=== PATIENT | female | born 1945 | race Caucasian/White ===

== ENCOUNTER 2020-07-13 17:09 | Emergency (ER) | payer MEDICARE ==
[2020-07-13] MEDS ORDERED: Sodium Chloride 0.9% 1000 ML 1,000 ML IV STA (17:14)
[2020-07-13] MEDS ORDERED: Nitrostat 0.4 MG (ED) SL ONE ×2 (17:14→17:23)
[2020-07-13] MEDS ORDERED: BABY ASPIRIN 81 MG CHEW PO ONE (17:14)
[2020-07-13] MEDS ORDERED: BABY ASPIRIN 81 MG CHEW ONE (17:23)
[2020-07-13] MEDS ORDERED: Sodium Chloride 0.9% 1000 ML 1,000 ML ONE (17:23)
[2020-07-13 17:32] LABS: Absolute Neutrophil Ct (ANC) 3.97 (1.4-6.9); BASOPHIL % 0.4 % (0.0-0.4); Basophil (Absolute #) 0.03 (0-0.4); Eosinophil % 1.2 % (0.00-5.0); Eosinophil (Absolute #) 0.09 (0-0.5); Hematocrit 42.6 % (35-47); Lymphocyte (Absolute #) 2.64 (1.0-4.6); Lymphocytes % 35.4 % (24.0-44.0); Mean Cell Volume 91.4 fl (78-100); Mean Corpuscular Hgb Concent. 32.9 g/dl (32-36); Mean Platelet Volume 9.7 fl (7.5-11.0); Monocyte (Absolute #) 0.73 (0.0-1.3); Monocytes % 9.8 % (0.0-12.0); Neutrophil % 53.2 % (36.0-66.0); Platelet Count 345 K/mm3 (150-450); Red Blood Count 4.66 M/mm3 (4.1-5.4); Red Cell Distribution Width 14.4 % (11.5-14.0); White Blood Count 7.5 K/mm3 (4.0-10.5)
--- NOTE | 2020-07-13 17:44 | ERPHSYRPT ---
<MARY ANNE,RANJIT - Last Filed: 07/13/20 19:07> - History of Present Illness Time Seen by Provider: 07/13/20 17:42 Historian: patient Exam Limitations: no limitations Patient Subjective Stated Complaint: Chest pain Triage Nursing Assessment: Patient ambulated back to ED and transferred self to bed. Patient A+O X3. Patient's skin pink, warm and dry. Patient complains of chest pain intermittent sharp, burning pain 3/10. Patient states the pain has been for one week. Patient's lungs clear a/p emma. No edema noted. Heart tones audible. Physician History: Patient complains of chest pain intermittent sharp, burning pain 3/10. Patient states the pain has been for one week. Patient denies any chest pain radiation, diaphoresis shortness of breath fever chills abdominal pain or swelling on her l eg. Patient states that she had a better day yesterday but today morning she had a chest pain for few minutes. While she is in the emergency room she denies any chest pain now. Timing/Duration: day(s) (5-7 days) Activities at Onset: none Quality: burning, sharpness Location: substernal Chest Pain Radiation: no radiation Severity of Pain-Max: mild Severity of Pain-Current: none Modifying Factors: Improves With: nothing Associated Symptoms: denies symptoms Prior Chest Pain/Cardiac Workup: no prior chest pain Nitro Today/Relief: no nitro taken today Aspirin Treatment Today: no aspirin today Allergies/Adverse Reactions: No Known Drug Allergies Allergy (Verified 07/13/20 17:12) Home Medications: Aspirin [Aspirin EC] 81 mg PO HS 03/14/15 [History] Gabapentin [Neurontin] 300 mg PO BID 03/14/15 [History] Hx Tetanus, Diphtheria Vaccination/Date Given: No Hx Influenza Vaccination/Date Given: No Hx Pneumococcal Vaccination/Date Given: No Immunizations Up to Date: Yes Travel Risk - International Travel Have you traveled outside of the country in past 3 weeks: No - Coronavirus Screening Are you exhibiting any of the following symptoms?: No Close contact with a COVID-19 positive Pt in past 14-21 Days: No - Review of Systems Constitutional: No Fever, No Chills Eyes: No Symptoms Ears, Nose, & Throat: No Symptoms Respiratory: No Cough, No Dyspnea Cardiac: Chest Pain, No Edema, No Syncope Abdominal/Gastrointestinal: No Abdominal Pain, No Nausea, No Vomiting, No Diarrhea Genitourinary Symptoms: No Dysuria Musculoskeletal: No Back Pain, No Neck Pain Skin: No Rash Neurological: No Dizziness, No Focal Weakness, No Sensory Changes Psychological: No Symptoms Endocrine: No Symptoms All Other Systems: Reviewed and Negative - Past Medical History Neurological History: Peripheral Neuropathy ENT History: No Pertinent History Cardiac History: No Pertinent History Respiratory History: No Pertinent History Endocrine Medical History: No Pertinent History Musculoskeletal History: Arthritis GI Medical History: Gallbladder Disease, Hemorrhoids, Polyps History: No Pertinent History Psycho-Social History: No Pertinent History Female Reproductive Disorders: Other 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 - Past Surgical History Past Surgical History: Yes Neuro Surgical History: No Pertinent History Cardiac: No Pertinent History Respiratory: No Pertinent History Gastrointestinal: Cholecystectomy Genitourinary: No Pertinent History Musculoskeletal: No Pertinent History Female Surgical History: Hysterectomy - Social History Smoking Status: Never smoker Exposure to second hand smoke: No Drug Use: none Patient Lives Alone: No - Female History Hx Now: No - Physical Exam General Appearance: no apparent distress, alert Eye Exam: PERRL/EOMI, eyes nml inspection Ears, Nose, Throat Exam: normal ENT inspection, moist mucous membranes Neck Exam: normal inspection, non-tender, supple, full range of motion Respiratory Exam: normal breath sounds, lungs clear, No respiratory distress Cardiovascular Exam: regular rate/rhythm, normal heart sounds Gastrointestinal/Abdomen Exam: soft, No tenderness, No mass Back Exam: normal inspection, No CVA tenderness, No vertebral tenderness Extremity Exam: normal inspection, normal range of motion Neurologic Exam: alert, oriented x 3, cooperative, normal mood/affect, sensation nml, No motor deficits Skin Exam: normal color, warm, dry SpO2: 96 - Course Nursing assessment & vital signs reviewed: Yes EKG Interpreted by Me: Sinus Rhythm, Non-specific ST Changes - Radiology Exams Chest X-ray Interpretation: Reviewed by me - Departure Clinical Impression: Pulmonary embolus Condition: Stable Referrals: EDYTA FERRERA [Primary Care Provider] - Additional Instructions: Take medication as prescribed. Call Dr. Ferrera's office tomorrow to make arrangements for follow-up appointment. Prescriptions: Apixaban [Eliquis] 5 mg PO BID #30 tablet <VANE SCHILLING - Last Filed: 07/13/20 20:42> - Nursing Vital Signs Nursing Vital Signs: Initial Vital Signs Temperature 98.6 F 07/13/20 17:16 Pulse Rate 101 H 07/13/20 17:16 Respiratory Rate 18 07/13/20 17:16 Blood Pressure 177/92 07/13/20 17:16 O2 Sat by Pulse Oximetry 96 07/13/20 17:16 Pain Scale Pain Intensity 1 Ordered Tests: Active Orders 24 hr Category Date Time Status Metalizing Machine Operator STAT Care 07/13/20 17:14 Active EKG-ER Only STAT Care 07/13/20 17:14 Active IV Insertion STAT Care 07/13/20 17:14 Active Oxygen-ED Only Nasal Cannula 2 lpm Care 07/13/20 17:14 Active CHEST 1 VIEW (PORTABLE) Stat Exams 07/13/20 17:14 Taken CHEST WITH CONTRAST [CT] Stat Exams 07/13/20 18:26 Taken CBC W DIFF Stat Lab 07/13/20 17:20 Completed CMP Stat Lab 07/13/20 17:20 Completed D-DIMER QUANTITATIVE Stat Lab 07/13/20 17:20 Completed NT PRO BNP Stat Lab 07/13/20 17:20 Completed TROPONIN Q3H Lab 07/13/20 17:20 Completed TROPONIN Q3H Lab 07/13/20 20:15 Ordered TROPONIN Q3H Lab 07/13/20 23:15 Ordered TROPONIN Q3H Lab 07/14/20 02:15 Ordered TROPONIN Q3H Lab 07/14/20 05:15 Ordered Medication Summary Discontinued Medications Generic Name Dose Route Start Last Admin Trade Name Freq PRN Reason Stop Dose Admin Aspirin 324 mg 07/13/20 17:14 07/13/20 17:25 Baby Aspirin 81 Mg Chew PO 07/13/20 17:15 324 mg STAT ONE Administration Aspirin Confirm 07/13/20 17:23 Baby Aspirin 81 Mg Chew Administered 07/13/20 17:24 Dose 324 mg .ROUTE .STK-MED ONE Famotidine 20 mg 07/13/20 18:15 07/13/20 18:16 Pepcid 20 Mg Vial IV 07/13/20 18:16 20 mg STAT ONE Administration Famotidine Confirm 07/13/20 18:15 Pepcid 20 Mg Vial Administered 07/13/20 18:16 Dose 20 mg IV .STK-MED ONE Sodium Chloride 1,000 mls @ 999 mls/hr 07/13/20 17:14 07/13/20 18:28 Sodium Chloride 0.9% 1000 Ml IV 07/13/20 18:14 Infused .Q1H1M STA Infusion Sodium Chloride Confirm 07/13/20 17:23 Sodium Chloride 0.9% 1000 Ml Administered 07/13/20 17:24 Dose 1,000 mls @ ud .ROUTE .STK-MED ONE Nitroglycerin 0.4 mg 07/13/20 17:14 07/13/20 17:25 Nitrostat 0.4 Mg (Ed) SL 07/13/20 17:15 0.4 mg STAT ONE Administration Nitroglycerin Confirm 07/13/20 17:23 Nitrostat 0.4 Mg (Ed) Administered 07/13/20 17:24 Dose 0.4 mg SL .STK-MED ONE Lab/Rad Data: Laboratory Result Diagrams 07/13/20 17:20 07/13/20 17:20 Laboratory Results 07/13/20 07/13/20 07/13/20 Range/Units 17:20 17:20 17:20 WBC (4.0-10.5) K/mm3 RBC (4.1-5.4) M/mm3 Hgb (12.0-16.0) gm/dl Hct (35-47) % MCV (78-100) fl MCH (26-32) pg MCHC (32-36) g/dl RDW (11.5-14.0) % Plt Count (150-450) K/mm3 MPV (7.5-11.0) fl Gran % (36.0-66.0) % Eos # (Auto) (0-0.5) Absolute Lymphs (auto) (1.0-4.6) Absolute Monos (auto) (0.0-1.3) Lymphocytes % (24.0-44.0) % Monocytes % (0.0-12.0) % Eosinophils % (0.00-5.0) % Basophils % (0.0-0.4) % Absolute Granulocytes (1.4-6.9) Basophils # (0-0.4) D-Dimer 1413 H* (215-500) ng/mL Sodium 139 (137-145) mmol/L Potassium 3.5 (3.5-5.1) mmol/L Chloride 103 (98-107) mmol/L Carbon Dioxide 27 (22-30) mmol/L Anion Gap 12.6 (5-15) MEQ/L BUN 13 (7-17) mg/dL Creatinine 0.82 (0.52-1.04) mg/dL Estimated GFR > 60.0 ML/MIN Glucose 132 H (74-106) mg/dL Calcium 9.4 (8.4-10.2) mg/dL Total Bilirubin 0.70 (0.2-1.3) mg/dL AST 27 (14-36) U/L ALT 18 (0-35) U/L Alkaline Phosphatase 103 (38-126) U/L Troponin I < 0.012 (0.000-0.034) ng/mL NT-Pro-B Natriuret Pep 182 (0-1800) pg/mL Serum Total Protein 8.0 (6.3-8.2) g/dL Albumin 4.3 (3.5-5.0) g/dL 07/13/20 Range/Units 17:20 WBC 7.5 (4.0-10.5) K/mm3 RBC 4.66 (4.1-5.4) M/mm3 Hgb 14.0 (12.0-16.0) gm/dl Hct 42.6 (35-47) % MCV 91.4 (78-100) fl MCH 30.0 (26-32) pg MCHC 32.9 (32-36) g/dl RDW 14.4 H (11.5-14.0) % Plt Count 345 (150-450) K/mm3 MPV 9.7 (7.5-11.0) fl Gran % 53.2 (36.0-66.0) % Eos # (Auto) 0.09 (0-0.5) Absolute Lymphs (auto) 2.64 (1.0-4.6) Absolute Monos (auto) 0.73 (0.0-1.3) Lymphocytes % 35.4 (24.0-44.0) % Monocytes % 9.8 (0.0-12.0) % Eosinophils % 1.2 (0.00-5.0) % Basophils % 0.4 (0.0-0.4) % Absolute Granulocytes 3.97 (1.4-6.9) Basophils # 0.03 (0-0.4) D-Dimer (215-500) ng/mL Sodium (137-145) mmol/L Potassium (3.5-5.1) mmol/L Chloride (98-107) mmol/L Carbon Dioxide (22-30) mmol/L Anion Gap (5-15) MEQ/L BUN (7-17) mg/dL Creatinine (0.52-1.04) mg/dL Estimated GFR ML/MIN Glucose (74-106) mg/dL Calcium (8.4-10.2) mg/dL Total Bilirubin (0.2-1.3) mg/dL AST (14-36) U/L ALT (0-35) U/L Alkaline Phosphatase (38-126) U/L Troponin I (0.000-0.034) ng/mL NT-Pro-B Natriuret Pep (0-1800) pg/mL Serum Total Protein (6.3-8.2) g/dL Albumin (3.5-5.0) g/dL - Progress Progress: improved Air Movement: good Progress Note: 07/13/20 20:39 Medical decision making: I received a phone call and then a follow-up report of the CTA of the chest on this patient. The radiologist said that he definitely sees a tiny abnormality within the peripheral branches of the superior segment of the left lower lobe. He told me that he is not completely or 100% convinced this is a pulmonary embolus but that is in the differential. The patient is hemodynamically stable and oxygenating well. I contacted Dr. Ferrera, who is the patient's primary care physician and the hospitalist on-call for hospital, I reviewed the patient's history, condition, laboratory work-up, EKG, radi ographic study results with him. He states that we should give the patient some Lovenox here in the emergency department and discharge the patient to home with Eliquis 5 mg orally twice a day and to follow-up in his his office. I am in agreement with this plan. The patient is in agreement with this plan as well. Blood Culture(s) Obtained: No Antibiotics given: No Discussed with : Kalani Counseled pt/family regarding: lab results, diagnosis, need for follow-up, rad results - Departure Departure Disposition: Home Critical Care Time: No
[2020-07-13 17:56] LABS: ALBUMIN 4.3 g/dL (3.5-5.0); ALKALINE PHOSPHATASE 103 U/L (38-126); ANION GAP 12.6 MEQ/L (5-15); BLOOD UREA NITROGEN 13 mg/dL (7-17); CHLORIDE 103 mmol/L (98-107); Calcium 9.4 mg/dL (8.4-10.2); Carbon Dioxide 27 mmol/L (22-30); Creatinine 1 0.82 mg/dL (0.52-1.04); Glucose 132 mg/dL (74-106); NT PRO BNP 182 pg/mL (0-1800); Potassium 3.5 mmol/L (3.5-5.1); SGOT/AST 27 U/L (14-36); SGPT/ALT 18 U/L (0-35); SODIUM 139 mmol/L (137-145)
[2020-07-13] MEDS ORDERED: Pepcid 20 MG VIAL IV ONE ×2 (18:15)
[2020-07-13] MEDS ORDERED: ENOXAPARIN SODIUM SQ ONE ×2 (20:42→20:43)
[2020-07-13 20:52] VITALS: BP 129/79; PULSE 80; O2SAT 96
--- NOTE | 2020-07-14 08:35 | XRAY ---
Indication: Chest pain. Elevated d-dimer. Multiple contiguous axial images obtained through the chest using 80 cc Isovue 370 contrast and PE protocol. Comparison: None There is satisfactory opacification of the pulmonary arteries to include the lobar and segmental branches. Tiny pulmonary emboli seen in the segmental/subsegmental branches of the left lower lobe. No other filling defect or pulmonary embolus. Heart is not enlarged. Aorta is normal in course and caliber. No pathologic mediastinal/hilar lymphadenopathy. Lungs inflated with minimal scattered fibrosis/scarring bilaterally. No suspicious pulmonary mass, infiltrate, or effusion. Bony thorax intact with mild degenerative changes throughout the spine. Limited upper abdomen demonstrates fatty liver. Impression: 1. Left lower lobe pulmonary emboli. No distal infarct. 2. Incidental fatty liver. Comment: Preliminary interpretation was made by [facility]. No critical discrepancy.
--- NOTE | 2020-07-14 08:37 | XRAY ---
Indication: Chest pain. Comparison: None Portable chest clear. Heart is not enlarged with mild tortuous descending aorta. Bony thorax intact with mild degenerative changes. Impression: Nonacute chest with chronic features.
== END 2020-07-13 20:58 | disposition home or self-care (01) ==
LOC: ED 17:09
DX: I26.99 Other pulmonary embolism without acute cor pulmonale (principal); R07.9 Chest pain, unspecified
CPT/HCPCS: 36000; 36415; 71045; 71260; 80053; 83880; 84484; 85025; 85379; 93005; 93041; 96360; 96372; 96374; 99285; J1650; A9270-GY

== ENCOUNTER 2020-07-15 07:52 | Observation (INO) | payer MEDICARE ==
--- NOTE | 2020-07-15 08:19 | ERPHSYRPT ---
- History of Present Illness Time Seen by Provider: 07/15/20 08:00 Historian: patient Exam Limitations: no limitations Patient Subjective Stated Complaint: Chest pain Triage Nursing Assessment: Patient ambulated back to ED and transferred self to bed. Patient A+O X3. Patient's skin pink, warm and dry. Patient complains of constant, burning pain 2/10. Patient was in ER on 07/13/20 and dx with PE. Patient was started on Eliquis. Patient states the pain is not going away.Lungs clear a/p emma. NO edema noted. Heart tones audible. Physician History: Patient is a 75-year-old female presents to our ED with complaints of a burning sensation in her chest. Patient was in our ED 2 days ago. At that time patient was diagnosed with a left lower lobe pulmonary embolism. She received a dose of Lovenox in our ED. Patient was discharged home on 5 mg Eliquis twice daily. Patient took Eliquis 5 mg twice daily yesterday. Chest pain is constant. It has not resolved since her last ED visit. No associated nausea vomiting or diaphoresis. No trauma. No fever. No shortness of breath. Patient voices no other complaints at this time. Timing/Duration: day(s) Activities at Onset: none Quality: burning Location: substernal Chest Pain Radiation: no radiation Severity of Pain-Max: moderate Severity of Pain-Current: mild Modifying Factors: Improves With: nothing Associated Symptoms: denies symptoms, No vomiting, No palpitations, No shortness of breath, No cough, No hurts to breathe, No diaphoresis, No syncope, No dizziness Nitro Today/Relief: no nitro taken today Aspirin Treatment Today: no aspirin today Allergies/Adverse Reactions: No Known Drug Allergies Allergy (Verified 07/15/20 07:55) Home Medications: Aspirin [Aspirin EC] 81 mg PO HS 03/14/15 [History] Gabapentin [Neurontin] 300 mg PO BID 03/14/15 [History] Hx Tetanus, Diphtheria Vaccination/Date Given: No Hx Influenza Vaccination/Date Given: No Hx Pneumococcal Vaccination/Date Given: No Immunizations Up to Date: Yes Travel Risk - International Travel Have you traveled outside of the country in past 3 weeks: No - Coronavirus Screening Are you exhibiting any of the following symptoms?: No Close contact with a COVID-19 positive Pt in past 14-21 Days: No - Review of Systems Constitutional: No Symptoms, No Fever, No Chills Eyes: No Symptoms Ears, Nose, & Throat: No Symptoms Respiratory: No Symptoms, No Cough, No Dyspnea Cardiac: No Symptoms, No Chest Pain, No Edema, No Syncope Abdominal/Gastrointestinal: No Symptoms, No Abdominal Pain, No Nausea, No Vomiting, No Diarrhea Genitourinary Symptoms: No Symptoms, No Dysuria Musculoskeletal: No Symptoms, No Back Pain, No Neck Pain Skin: No Symptoms, No Rash Neurological: No Symptoms, No Dizziness, No Focal Weakness, No Sensory Changes Psychological: No Symptoms Endocrine: No Symptoms Hematologic/Lymphatic: No Symptoms Immunological/Allergic: No Symptoms All Other Systems: Reviewed and Negative - Past Medical History Pertinent Past Medical History: Yes Neurological History: Peripheral Neuropathy ENT History: No Pertinent History Cardiac History: No Pertinent History Respiratory History: Pulmonary Embolism Endocrine Medical History: No Pertinent History Musculoskeletal History: Arthritis GI Medical History: Gallbladder Disease, Hemorrhoids, Polyps History: No Pertinent History Psycho-Social History: No Pertinent History Female Reproductive Disorders: Other 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, dx with recent PE - Past Surgical History Past Surgical History: Yes Neuro Surgical History: No Pertinent History Cardiac: No Pertinent History Respiratory: No Pertinent History Gastrointestinal: Cholecystectomy Genitourinary: No Pertinent History Musculoskeletal: No Pertinent History Female Surgical History: Hysterectomy - Social History Smoking Status: Never smoker Exposure to second hand smoke: No Drug Use: none Patient Lives Alone: No - Nursing Vital Signs Nursing Vital Signs: Initial Vital Signs Temperature 98.2 F 07/15/20 07:56 Pulse Rate 100 H 07/15/20 07:56 Respiratory Rate 18 07/15/20 07:56 Blood Pressure 158/85 07/15/20 07:56 O2 Sat by Pulse Oximetry 97 07/15/20 07:56 Pain Scale Pain Intensity 2 - Physical Exam General Appearance: no apparent distress, alert Eye Exam: PERRL/EOMI, eyes nml inspection Ears, Nose, Throat Exam: normal ENT inspection, moist mucous membranes Neck Exam: normal inspection, non-tender, supple, full range of motion Respiratory Exam: normal breath sounds, lungs clear, No respiratory distress Cardiovascular Exam: regular rate/rhythm, normal heart sounds Gastrointestinal/Abdomen Exam: soft, No tenderness, No mass Back Exam: normal inspection, No CVA tenderness, No vertebral tenderness Extremity Exam: normal inspection, normal range of motion Neurologic Exam: alert, oriented x 3, cooperative, normal mood/affect, sensation nml, No motor deficits Skin Exam: normal color, warm, dry SpO2 Interpretation: normal SpO2: 96 O2 Delivery: Room Air - Course Nursing assessment & vital signs reviewed: Yes EKG Interpreted by Me: RATE (87), Sinus Rhythm, Left Monroe Deviation, NORMAL INTERVALS - Radiology Exams Chest X-ray Interpretation: Teleradiologist Report (Her lung gregorio. Heart is not enlarged. Tortuous descending aorta. No new acute findings.) Ordered Tests: Active Orders 24 hr Category Date Time Status Paver STAT Care 07/15/20 07:55 Active EKG-ER Only STAT Care 07/15/20 07:54 Active IV Insertion STAT Care 07/15/20 07:54 Active Pulse Oximetry (ED) STAT Care 07/15/20 07:54 Active CHEST 1 VIEW (PORTABLE) Stat Exams 07/15/20 07:55 Completed CBC W DIFF Stat Lab 07/15/20 08:15 Completed CMP Stat Lab 07/15/20 08:15 Completed D-DIMER QUANTITATIVE Stat Lab 07/15/20 08:15 Completed TROPONIN Q3H Lab 07/15/20 08:15 Completed TROPONIN Q3H Lab 07/15/20 11:00 Ordered TROPONIN Q3H Lab 07/15/20 14:00 Ordered TROPONIN Q3H Lab 07/15/20 17:00 Ordered TROPONIN Q3H Lab 07/15/20 20:00 Ordered Transfer Order Routine Transfer 07/15/20 Ordered Medication Summary Generic Name Dose Route Start Last Admin Trade Name Freq PRN Reason Stop Dose Admin Apixaban 5 mg 07/15/20 10:00 07/15/20 08:59 Eliquis 2.5 Mg Tablet PO 08/14/20 09:59 5 mg DAILY TRACY Administration Lab/Rad Data: Laboratory Result Diagrams 07/15/20 08:15 07/15/20 08:15 Laboratory Results 07/15/20 07/15/20 07/15/20 Range/Units 08:15 08:15 08:15 WBC (4.0-10.5) K/mm3 RBC (4.1-5.4) M/mm3 Hgb (12.0-16.0) gm/dl Hct (35-47) % MCV (78-100) fl MCH (26-32) pg MCHC (32-36) g/dl RDW (11.5-14.0) % Plt Count (150-450) K/mm3 MPV (7.5-11.0) fl Gran % (36.0-66.0) % Eos # (Auto) (0-0.5) Absolute Lymphs (auto) (1.0-4.6) Absolute Monos (auto) (0.0-1.3) Lymphocytes % (24.0-44.0) % Monocytes % (0.0-12.0) % Eosinophils % (0.00-5.0) % Basophils % (0.0-0.4) % Absolute Granulocytes (1.4-6.9) Basophils # (0-0.4) D-Dimer 1134 H* (215-500) ng/mL Sodium 138 (137-145) mmol/L Potassium 3.7 (3.5-5.1) mmol/L Chloride 105 (98-107) mmol/L Carbon Dioxide 25 (22-30) mmol/L Anion Gap 11.1 (5-15) MEQ/L BUN 12 (7-17) mg/dL Creatinine 0.71 (0.52-1.04) mg/dL Estimated GFR > 60.0 ML/MIN Glucose 114 H (74-106) mg/dL Calcium 9.4 (8.4-10.2) mg/dL Total Bilirubin 0.90 (0.2-1.3) mg/dL AST 30 (14-36) U/L ALT 18 (0-35) U/L Alkaline Phosphatase 105 (38-126) U/L Troponin I < 0.012 (0.000-0.034) ng/mL Serum Total Protein 7.9 (6.3-8.2) g/dL Albumin 4.2 (3.5-5.0) g/dL 07/15/20 Range/Units 08:15 WBC 5.7 (4.0-10.5) K/mm3 RBC 4.71 (4.1-5.4) M/mm3 Hgb 14.1 (12.0-16.0) gm/dl Hct 43.3 (35-47) % MCV 91.9 (78-100) fl MCH 29.9 (26-32) pg MCHC 32.6 (32-36) g/dl RDW 14.4 H (11.5-14.0) % Plt Count 312 (150-450) K/mm3 MPV 9.8 (7.5-11.0) fl Gran % 67.3 H (36.0-66.0) % Eos # (Auto) 0.07 (0-0.5) Absolute Lymphs (auto) 1.34 (1.0-4.6) Absolute Monos (auto) 0.42 (0.0-1.3) Lymphocytes % 23.7 L (24.0-44.0) % Monocytes % 7.4 (0.0-12.0) % Eosinophils % 1.2 (0.00-5.0) % Basophils % 0.4 (0.0-0.4) % Absolute Granulocytes 3.81 (1.4-6.9) Basophils # 0.02 (0-0.4) D-Dimer (215-500) ng/mL Sodium (137-145) mmol/L Potassium (3.5-5.1) mmol/L Chloride (98-107) mmol/L Carbon Dioxide (22-30) mmol/L Anion Gap (5-15) MEQ/L BUN (7-17) mg/dL Creatinine (0.52-1.04) mg/dL Estimated GFR ML/MIN Glucose (74-106) mg/dL Calcium (8.4-10.2) mg/dL Total Bilirubin (0.2-1.3) mg/dL AST (14-36) U/L ALT (0-35) U/L Alkaline Phosphatase (38-126) U/L Troponin I (0.000-0.034) ng/mL Serum Total Protein (6.3-8.2) g/dL Albumin (3.5-5.0) g/dL - Progress Progress: improved Air Movement: good Progress Note: 07/15/20 09:41 Patient is a 75-year-old female with a known PE currently on Eliquis presents to our ED with substernal chest pain. Patient was in our ED for the same on Tuesday, 2 days ago. Patient's chest pain is now ongoing. Patient has never had a cardiac stress test. In light of patient's ongoing pain and cardiac risk factors we will admit for cardiac rule out possible cardiac stress test. Patient was dosed with her Eliquis today. Case discussed with Dr. Ferrera who accepts admission to observation. Plan of care discussed with patient. She agrees to admission to [facility] for further evaluation and treatment. Blood Culture(s) Obtained: No Antibiotics given: No Discussed with .: Kalani Will see patient in: hospital (observation) Counseled pt/family regarding: lab results, diagnosis, need for follow-up, rad results - Departure Departure Disposition: Observation Clinical Impression: Pulmonary embolus, ACS (acute coronary syndrome) Condition: Stable Critical Care Time: No Referrals: EDYTA FERRERA [Primary Care Provider] -
[2020-07-15 08:34] LABS: Absolute Neutrophil Ct (ANC) 3.81 (1.4-6.9); BASOPHIL % 0.4 % (0.0-0.4); Basophil (Absolute #) 0.02 (0-0.4); Eosinophil % 1.2 % (0.00-5.0); Eosinophil (Absolute #) 0.07 (0-0.5); Hematocrit 43.3 % (35-47); Hemoglobin 14.1 gm/dl (12.0-16.0); Lymphocyte (Absolute #) 1.34 (1.0-4.6); Lymphocytes % 23.7 % (24.0-44.0); Mean Cell Volume 91.9 fl (78-100); Mean Corpuscular Hemoglobin 29.9 pg (26-32); Mean Corpuscular Hgb Concent. 32.6 g/dl (32-36); Mean Platelet Volume 9.8 fl (7.5-11.0); Monocyte (Absolute #) 0.42 (0.0-1.3); Monocytes % 7.4 % (0.0-12.0); Neutrophil % 67.3 % (36.0-66.0); Platelet Count 312 K/mm3 (150-450); Red Blood Count 4.71 M/mm3 (4.1-5.4); Red Cell Distribution Width 14.4 % (11.5-14.0); White Blood Count 5.7 K/mm3 (4.0-10.5)
[2020-07-15 08:40] LABS: ALBUMIN 4.2 g/dL (3.5-5.0); ALKALINE PHOSPHATASE 105 U/L (38-126); ANION GAP 11.1 MEQ/L (5-15); BLOOD UREA NITROGEN 12 mg/dL (7-17); CHLORIDE 105 mmol/L (98-107); Calcium 9.4 mg/dL (8.4-10.2); Carbon Dioxide 25 mmol/L (22-30); Creatinine 1 0.71 mg/dL (0.52-1.04); Glucose 114 mg/dL (74-106); Potassium 3.7 mmol/L (3.5-5.1); SGOT/AST 30 U/L (14-36); SGPT/ALT 18 U/L (0-35); SODIUM 138 mmol/L (137-145); Total Protein 7.9 g/dL (6.3-8.2)
--- NOTE | 2020-07-15 08:47 | XRAY ---
Indication: Chest pain. Comparison: July 13, 2020. Portable chest remains clear. Heart is not enlarged again with tortuous descending aorta. No new/acute findings.
[2020-07-15] MEDS ORDERED: ELIQUIS 2.5 MG TABLET PO SCH ×2 (10:00→22:00)
[2020-07-15] MEDS ORDERED: TYLENOL 325 MG PO PRN (10:02)
[2020-07-15] MEDS ORDERED: Senokot-S Tablet PO PRN (10:02)
[2020-07-15] MEDS ORDERED: MILK OF MAGNESIA 30 ML PO PRN (10:02)
[2020-07-15] MEDS ORDERED: Zofran 4 MG/2 ML VIAL IV PRN (10:02)
[2020-07-15] MEDS ORDERED: MAALOX ES 30 ML UNIT DOSE PO PRN (10:02)
[2020-07-15] MEDS ORDERED: Sodium Chloride 0.9% 10 ML FLUSH Syringe IV PRN (10:29)
[2020-07-15] MEDS ORDERED: Voltaren GEL TOP PRN (11:43)
[2020-07-15] MEDS ORDERED: PROTONIX 40 MG IV IV ONE (11:43)
[2020-07-15] MEDS: Sodium Chloride 0.9% 10 ML FLUSH Syringe IV SCH ×2 (13:05→22:11)
[2020-07-15] MEDS ORDERED: Nitrostat 0.4 MG Tablet SL PRN (15:50)
[2020-07-15] MEDS ORDERED: ECOTRIN 81 MG PO SCH (22:00)
[2020-07-15] MEDS ORDERED: NON-FORMULARY ITEM (Apixaban [Eliquis] 5 MG) PO SCH (22:00)
[2020-07-15] MEDS ORDERED: NEURONTIN 300 MG PO SCH (22:00)
[2020-07-16 05:27] LABS: Hematocrit 41.7 % (35-47); Hemoglobin 13.4 gm/dl (12.0-16.0); Mean Cell Volume 92.3 fl (78-100); Mean Corpuscular Hemoglobin 29.6 pg (26-32); Mean Corpuscular Hgb Concent. 32.1 g/dl (32-36); Mean Platelet Volume 10.2 fl (7.5-11.0); Platelet Count 308 K/mm3 (150-450); Red Blood Count 4.52 M/mm3 (4.1-5.4); Red Cell Distribution Width 14.3 % (11.5-14.0); White Blood Count 7.1 K/mm3 (4.0-10.5)
[2020-07-16 05:42] LABS: ANION GAP 10.2 MEQ/L (5-15); BLOOD UREA NITROGEN 18 mg/dL (7-17); CHLORIDE 102 mmol/L (98-107); Calcium 9.5 mg/dL (8.4-10.2); Carbon Dioxide 28 mmol/L (22-30); Creatinine 1 0.81 mg/dL (0.52-1.04); Glucose 114 mg/dL (74-106); Potassium 4.2 mmol/L (3.5-5.1); SODIUM 136 mmol/L (137-145)
[2020-07-16 05:53] LABS: Cholesterol 187 mg/dL (50-200); HDL CHOLESTEROL 53 mg/dL (40-60); LDL, DIRECT 120 mg/dL (30-100); Risk Ratio 3.6; TRIGLYCERIDE 146 mg/dL (30-150); TROPONIN < 0.012 ng/mL (0.000-0.034)
[2020-07-16] MEDS: Sodium Chloride 0.9% 10 ML FLUSH Syringe IV SCH (06:33)
--- NOTE | 2020-07-16 07:43 | HP ---
CHIEF COMPLAINT: Chest pain. HISTORY OF PRESENT ILLNESS: The patient is a 75 year old white female who presented to the emergency room with complaints of chest pain. She reports it is burning in nature and she has been having it a lot for the past three days. The patient was seen in the emergency room over the weekend and CT scan of the chest revealed a small emboli. The patient was discharged home but since that time she has continued to have the chest discomfort. She represents now for further evaluation and management. PAST MEDICAL/SURGICAL HISTORY: Negative for previous heart problems. She has had no dyspnea on exertion, no paroxysmal nocturnal dyspnea. She has had no leg swelling. Her medical history is significant for history of gallbladder disease. She has had cholecystectomy performed. She had hemorrhoids and polyps removed. She had hysterectomy. PHYSICAL EXAMINATION: Her vital signs on admission showed her temperature to be 98.2F, pulse 100, respiratory rate 18 and blood pressure 158/85. O2 saturation 97% on room air. HEENT: Normocephalic, atraumatic. Pupils equal round reactive to light. Extraocular movements intact. Oropharynx is pink and moist. NECK: Supple without lymphadenopathy, thyromegaly or JVD. CHEST: Clear to auscultation. HEART: Regular rate and rhythm. There is some tenderness to the left sternal border upon applying pressure. ABDOMEN: Soft. No palpable masses. EXTREMITIES: Without cyanosis, clubbing or edema. NEUROLOGIC: The patient is alert and oriented x3. LAB DATA AND TESTS: Laboratory studies at this time show her troponin to be again less than 0.012. Totally normal CBC. Nonfasting glucose at 114 otherwise a totally normal metabolic panel. D-dimer was elevated again 1,134. She had chest x-ray associated with no acute findings. Her EKG shows left axis deviation. No acute ST-T wave changes are noted. She is in sinus rhythm. There is recent R-wave progression across the precordial leads. ASSESSMENT: A patient with chest pain which sounds likely chest wall. We will apply Voltaren gel to the chest wall. She will have serial troponins performed. She will continue her medications for the blood thinners for recently diagnosed small pulmonary embolism. We will obtain a cardiology consultation. She will receive Protonix IV 40 mg on a one time dose. We will also obtain echocardiogram for further evaluation of the heart.
[2020-07-16 08:19] VITALS: BP 139/79; PULSE 85; O2SAT 96
--- NOTE | 2020-07-16 13:30 | DS ---
DISCHARGE DIAGNOSIS: CHEST WALL PAIN. CONSULTATIONS: Tele-cardiology from Dr. Guido at [place]. HISTORY: The patient is a 75 year old white female who began having problems with chest pain over the past weekend. She was seen in the emergency room initially with CT-angiography of the chest showing small pulmonary embolus. The patient at that time was placed on Eliquis and allowed to go home. The patient reports over the next couple of days she continued to have the chest discomfort which she reported as burning across the chest. On examination the patient did have some tenderness to palpation of the left sternal border. The patient had cardiac enzymes performed multiple times which all were less than 0.012. She had an echocardiogram completed which results are currently pending. The tele-cardiology consult recommendation of an outpatient chemical stress test which he will arrange. She will have a follow up appointment to see Dr. Guido who performed the tele-cardiology consultation from [place]. The patient otherwise will continue her home medications with the new ones including Eliquis. She was given Voltaren gel to place on the chest wall. She was instructed to return to the emergency room if she has any exacerbation of her pain or shortness of breath.
== END 2020-07-16 09:40 | disposition home or self-care (01) ==
LOC: ED 07:52 → ICU 09:57
PROVIDERS: ADMIT Family Medicine; ATTEND Family Medicine
DX: R07.89 Other chest pain (principal); Z79.899 Other long term (current) drug therapy; Z86.711 Personal history of pulmonary embolism; Z79.01 Long term (current) use of anticoagulants
CPT/HCPCS: 36000; 36415; 71045; 80048; 80053; 80061; 83721; 84484; 85025; 85027; 85379; 93005; 93041; 93268; 93306; 94760; 99285; G0378; Q3014; A9270-GY

== ENCOUNTER 2020-09-29 05:55 | Day surgery (SDC) | payer MEDICARE ==
[2020-09-29] MEDS ORDERED: Lactated Ringers 1,000 ML IV SCH (06:30)
[2020-09-29 06:34] VITALS: O2SAT 98
[2020-09-29] MEDS ORDERED: DIPRIVAN 200 MG/20 ML IV ONE ×2 (07:02→07:12)
[2020-09-29 08:17] VITALS: PULSE 70
[2020-09-29 08:41] VITALS: BP 139/68
--- NOTE | 2020-09-29 13:47 | OP ---
SURGERY DATE/TIME: 09/29/2020 0655 PREOPERATIVE DIAGNOSIS: History of colon polyps. POSTOPERATIVE DIAGNOSIS: Small polyps in the transverse and ascending colon and sigmoid diverticulosis. PROCEDURE: Colonoscopy with cold forceps biopsy. SURGEON: Dr. Ferrera. ANESTHESIA: MAC. Medications given by anesthesia department. HISTORY: The patient is a 75 year old white female who had colon polyps five years ago. The patient now represents for surveillance examination. She was reappraised of the risks of the procedure including the risk of perforation, phlebitis, untoward reaction to medication, bleeding and missed lesions. The patient verbalized her understanding and desired to have the procedure performed. DESCRIPTION OF PROCEDURE: The patient was given the medications by the anesthesia department. She had continuous pulse oximetry, ECG monitoring, intermittent blood pressure monitoring and tidal CO2 monitoring during the examination. She was placed in the left lateral decubitus position. A digital rectal examination was performed and revealed normal anal sphincter tone and no masses. The flexible Olympus pediatric colonoscope was used to intubate the rectum. A view of the colon was developed sequentially to the cecum. Upon insertion and withdrawal was noted a small polyp in the transverse colon this was biopsied using cold biopsy technique to destroy the lesion. A second smaller one was noted approximately 5 cm proximal to this. There was also noted a small polyp in the ascending colon that was likewise treated. Upon insertion and withdrawal including a retroflex view in the rectum, no other mucosal lesions being encountered. The scope was removed from the patient who tolerated the procedure well and was sent back to OP recovery in good condition. The prep was noted to be good. The colon was noted to be tortuous.
== END 2020-09-29 08:47 | disposition home or self-care (01) ==
LOC: SDC 05:55
PROVIDERS: ATTEND Family Medicine
DX: Z09 Encounter for follow-up examination after completed treatment for conditions other than malignant neoplasm (principal); Z86.010 Personal history of colon polyps; D12.2 Benign neoplasm of ascending colon; D12.3 Benign neoplasm of transverse colon
CPT/HCPCS: 88305; 99100; J2704

== ENCOUNTER 2024-07-03 07:05 | Emergency (ER) | payer MEDICARE ==
[2024-07-03 07:35] VITALS: TEMP 97.2
--- NOTE | 2024-07-03 07:50 | ERPHSYRPT ---
- History of Present Illness Time Seen by Provider: 07/03/24 07:35 Source: patient, family (daughter) Exam Limitations: no limitations Patient Subjective Stated Complaint: "I think I've had Covid, I've been sick since Tuesday last week. My was positive for Covid. My blood pressure has been high and I'm short of breath". Triage Nursing Assessment: Pt presents to ER with complaints of shortness of breath, weakness, fatigue, diarrhea, cough, and high blood pressure. Pt believes she may have Covid virus. Pt is pale and appears weak. Respirations are shallow and frequent. Pt states had an episode of diarrhea, denies vomiting. Pt denies pain. States has some "throbbing" in the head but no real pain. Physician History: For the past 6 days pt has had fatigue; for the past 5 days a non-productive cough; since yesterday mild shortness of air on exertion. Pt admits to a 99.6 degree temperature 6 days ago only and diarrhea for 2 days starting 4 days ago. LBM was today & wnl. Allergies/Adverse Reactions: No Known Drug Allergies Allergy (Verified 07/03/24 08:01) Home Medications: Gabapentin [Neurontin] 300 mg PO BID 03/14/15 [History] Metoprolol Succinate 25 mg Xl* [Toprol-Xl 25MG Tablets] 25 mg PO DAILY 09/11/20 [History] Atorvastatin Calcium 10 mg PO DAILY 07/03/24 [History] Hx Tetanus, Diphtheria Vaccination/Date Given: No Hx Influenza Vaccination/Date Given: Yes Hx Pneumococcal Vaccination/Date Given: Yes Immunizations Up to Date: No Travel Risk - International Travel Have you traveled outside of the country in past 3 weeks: No - Emerging Infectious Disease Are you exhibiting symptoms associated with any current EIDs: Yes Symptoms: Cough: New Onset, Diarrhea, Fever, Headaches/Body Aches/, Shortness of Breath - Review of Systems Constitutional: Fever Ears, Nose, & Throat: No Ear Pain, No Throat Pain Respiratory: Cough, Dyspnea on Exertion (GARCAÍ) Abdominal/Gastrointestinal: Diarrhea, No Abdominal Pain, No Vomiting Neurological: No Headache - Past Medical History Pertinent Past Medical History: Yes Neurological History: Peripheral Neuropathy ENT History: No Pertinent History Cardiac History: Hypertension Respiratory History: Pulmonary Embolism Endocrine Medical History: No Pertinent History Musculoskeletal History: Arthritis GI Medical History: Gallbladder Disease, Hemorrhoids, Polyps History: No Pertinent History Psycho-Social History: No Pertinent History Female Reproductive Disorders: Other 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, dx with recent PE "june 2020" - Past Surgical History Past Surgical History: Yes Neuro Surgical History: No Pertinent History Cardiac: No Pertinent History Respiratory: No Pertinent History Gastrointestinal: Cholecystectomy Genitourinary: No Pertinent History Musculoskeletal: No Pertinent History Female Surgical History: Hysterectomy Other Surgical History: skin cancer removed - Social History Smoking Status: Never smoker Exposure to second hand smoke: No Drug Use: none Patient Lives Alone: No - Social Determinants of Health Will the patient participate in the screening: Yes Do you worry about a steady place to live?: No Do you have any problems with any of the following?: No known problems In the past 12 months,have you had to go without utilities?: No Transportation Issues: No Has anyone in your support network made you feel unsafe?: No Have you or anyone in your house had to go without enough: No - Nursing Vital Signs Nursing Vital Signs: Initial Vital Signs Temperature 97.2 F 07/03/24 07:26 Pulse Rate 91 H 07/03/24 07:26 Respiratory Rate 22 07/03/24 07:26 Blood Pressure 143/84 07/03/24 07:26 O2 Sat by Pulse Oximetry 95 07/03/24 07:26 Pain Scale Pain Intensity 4 - Physical Exam General Appearance: alert Eye Exam: eyes nml inspection Ears, Nose, Throat Exam: hearing grossly normal, pharyngeal erythema (mild) Neck Exam: normal inspection Respiratory Exam: lungs clear Cardiovascular/Chest Exam: normal heart sounds Abdominal/Gastrointestinal Exam: normal bowel sounds Extremity Exam: No pedal edema Neurologic Exam: alert, cooperative Skin Exam: warm, dry, No cyanosis SpO2 Interpretation: normal SpO2: 95 O2 Delivery: Room Air - Course Nursing assessment & vital signs reviewed: Yes EKG Interpreted by Me: RATE (79), Sinus Rhythm, Left [place] Deviation, Other (QTc= 446) - Radiology Exams Chest X-ray Interpretation: Discussed w/ radiologist (See report.) - CT Exams Chest CT Interpretation: Discussed w/radiologist (Continued negative pulmonary embolus. No new/acute cardiopulmonary abnormalities. Again chronic findings including bibasilar fibrosis/scarring, degenerative spondylosis and fatty liver.) Ordered Tests: Active Orders 24 hr Category Date Time Status Salesperson Stereo Equipment STAT Care 07/03/24 07:53 Active EKG-ER Only STAT Care 07/03/24 07:52 Active IV Insertion STAT Care 07/03/24 07:52 Active CHEST 1 VIEW (PORTABLE) Stat Exams 07/03/24 08:38 Completed CHEST WITH CONTRAST [CT] Stat Exams 07/03/24 09:01 Completed CBC W DIFF Stat Lab 07/03/24 08:10 Completed CMP Stat Lab 07/03/24 08:10 Completed CULTURE,URINE Stat Lab 07/03/24 08:34 Received D-DIMER QUANTITATIVE Stat Lab 07/03/24 08:10 Completed Lactic Acid Stat Lab 07/03/24 07:52 Completed MAGNESIUM Stat Lab 07/03/24 08:10 Completed MONO SCREEN Stat Lab 07/03/24 08:10 Completed NT PRO BNPII Stat Lab 07/03/24 08:10 Completed TROPONIN Q4H Lab 07/03/24 08:10 Completed TROPONIN Q4H Lab 07/03/24 12:00 Ordered TROPONIN Q4H Lab 07/03/24 16:00 Ordered UA W/RFX UR CULTURE Stat Lab 07/03/24 08:34 Completed VENOUS BLOOD GAS Stat Lab 07/03/24 07:53 Completed Medication Summary Discontinued Medications Generic Name Dose Route Start Last Admin Trade Name Freq PRN Reason Stop Dose Admin Sodium Chloride 1,000 mls @ 999 mls/hr 07/03/24 07:52 07/03/24 09:28 Sodium Chloride 0.9% 1000 Ml IV 07/03/24 08:52 Infused .Q1H1M STA Infusion Sodium Chloride Confirm 07/03/24 08:00 Sodium Chloride 0.9% 1000 Ml Administered 07/03/24 08:01 Dose 1,000 mls @ ud .ROUTE .STK-MED ONE Sodium Chloride Confirm 07/03/24 08:09 Sodium Chloride 0.9% 1000 Ml Administered 07/03/24 08:10 Dose 1,000 mls @ ud .ROUTE .STK-MED ONE Ceftriaxone Sodium 1 gm in 100 mls @ 200 mls/hr 07/03/24 11:02 07/03/24 11:14 Rocephin 1 Gm / 100 Ml Nacl IV 07/03/24 11:31 200 mls/hr STAT ONE 200 mls/hr Administration Ceftriaxone Sodium Confirm 07/03/24 11:12 Rocephin 1 Gm / 100 Ml Nacl Administered 07/03/24 11:13 Dose 1 gm in 100 mls @ ud IV .STK-MED ONE Lab/Rad Data: Laboratory Result Diagrams 07/03/24 08:10 07/03/24 08:10 Laboratory Results 07/03/24 07/03/24 07/03/24 Range/Units 08:34 08:22 08:22 WBC (3.98-10.04) x10^3/uL RBC (3.93-5.22) x10^6/uL Hgb (11.2-15.7) g/dL Hct (34.1-44.9) % MCV (79.4-94.8) fL MCH (25.6-32.2) pg MCHC (32.2-35.5) g/dL RDW (11.7-14.4) % Plt Count (182-369) x10^3/uL MPV (9.4-12.3) fL Gran % (34.0-71.1) % Immature Gran % (Auto) (0.001-0.429) % Nucleat RBC Rel Count (0.00-0.2) % Eos # (Auto) (0.04-0.36) x10^3/uL Immature Gran # (Auto) (0.001-0.031) x10^3u/L Absolute Lymphs (auto) (1.18-3.74) x10^3/uL Absolute Monos (auto) (0.24-0.86) x10^3/uL Absolute Nucleated RBC (0.00-0.012) x10^3u/L Lymphocytes % (19.3-51.7) % Monocytes % (4.7-12.5) % Eosinophils % (0.7-5.8) % Basophils % (0.1-1.2) % Absolute Granulocytes (1.56-6.13) x10^3/uL Basophils # (0.01-0.08) x10^3/uL D-Dimer (0.0-0.50) mg/L pO2/FiO2 Ratio % VBG pH (7.32-7.42) VBG pCO2 at Pat Temp (42-55) mm/Hg VBG pO2 at Pat Temp (25-40) mm/Hg VBG HCO3 (22-28) meq/L VBG O2 Sat (Josh) (95-100) VBG Base Excess (-2.0-2.0) VBG Hemoglobin VBG Carboxyhemoglobin (0.0-6.9) % T HGB POC Potassium (3.5-5.1) Sodium (135-145) mmol/L Potassium (3.5-5.1) mmol/L Chloride (98-107) mmol/L Carbon Dioxide (22-30) mmol/L Anion Gap (5-15) MEQ/L BUN (7-17) mg/dL Creatinine (0.52-1.04) mg/dL Estimated GFR ML/MIN Glucose (74-106) mg/dL Lactic Acid (0.4-2.0) Calcium (8.4-10.2) mg/dL Magnesium (1.6-2.3) mg/dL Total Bilirubin (0.2-1.3) mg/dL AST (14-36) U/L ALT (0-35) U/L Alkaline Phosphatase (38-126) U/L Troponin I (0.000-0.033) ng/mL NT-Pro-B Natriuret Pep (<300) pg/mL Serum Total Protein (6.3-8.2) g/dL Albumin (3.5-5.0) g/dL Urine Color Yellow (Yellow) Urine Appearance Cloudy A (Clear) Urine pH 6.5 (4.6-8.0) Ur Specific [place] 1.010 (1.005-1.030) Urine Protein Trace A (Negative) Urine Glucose (UA) Negative (Negative) mg/dL Urine Ketones Negative (Negative) Urine Blood Trace (Negative) Urine Nitrite Negative (Negative) Urine Bilirubin Negative (Negative) Urine Urobilinogen 0.2 (0.2) mg/dL Ur Leukocyte Esterase Large A (Negative) U Hyaline Cast (Auto) NONE SEEN (0-2) /LPF Urine Microscopic RBC 0-2 (0-5) /HPF Urine Microscopic WBC >100 A (0-5) /HPF Ur Epithelial Cells Few (None Seen) /HPF Urine Bacteria Many A (None Seen) /HPF Urine Culture Reflexed YES (NO) Monoscreen (NEGATIVE) Influenza Type A Ag NEGATIVE (NEGATIVE) Influenza Type B Ag NEGATIVE (NEGATIVE) RSV (PCR) NEGATIVE (NEGATIVE) SARS-CoV-2 (PCR) POSITIVE A (NEGATIVE) Group A Strep Antibody NOT DETECTED (NEGATIVE) 07/03/24 07/03/24 07/03/24 Range/Units 08:10 08:10 08:10 WBC (3.98-10.04) x10^3/uL RBC (3.93-5.22) x10^6/uL Hgb (11.2-15.7) g/dL Hct (34.1-44.9) % MCV (79.4-94.8) fL MCH (25.6-32.2) pg MCHC (32.2-35.5) g/dL RDW (11.7-14.4) % Plt Count (182-369) x10^3/uL MPV (9.4-12.3) fL Gran % (34.0-71.1) % Immature Gran % (Auto) (0.001-0.429) % Nucleat RBC Rel Count (0.00-0.2) % Eos # (Auto) (0.04-0.36) x10^3/uL Immature Gran # (Auto) (0.001-0.031) x10^3u/L Absolute Lymphs (auto) (1.18-3.74) x10^3/uL Absolute Monos (auto) (0.24-0.86) x10^3/uL Absolute Nucleated RBC (0.00-0.012) x10^3u/L Lymphocytes % (19.3-51.7) % Monocytes % (4.7-12.5) % Eosinophils % (0.7-5.8) % Basophils % (0.1-1.2) % Absolute Granulocytes (1.56-6.13) x10^3/uL Basophils # (0.01-0.08) x10^3/uL D-Dimer 0.72 H* (0.0-0.50) mg/L pO2/FiO2 Ratio % VBG pH (7.32-7.42) VBG pCO2 at Pat Temp (42-55) mm/Hg VBG pO2 at Pat Temp (25-40) mm/Hg VBG HCO3 (22-28) meq/L VBG O2 Sat (Josh) (95-100) VBG Base Excess (-2.0-2.0) VBG Hemoglobin VBG Carboxyhemoglobin (0.0-6.9) % T HGB POC Potassium (3.5-5.1) Sodium (135-145) mmol/L Potassium (3.5-5.1) mmol/L Chloride (98-107) mmol/L Carbon Dioxide (22-30) mmol/L Anion Gap (5-15) MEQ/L BUN (7-17) mg/dL Creatinine (0.52-1.04) mg/dL Estimated GFR ML/MIN Glucose (74-106) mg/dL Lactic Acid (0.4-2.0) Calcium (8.4-10.2) mg/dL Magnesium (1.6-2.3) mg/dL Total Bilirubin (0.2-1.3) mg/dL AST (14-36) U/L ALT (0-35) U/L Alkaline Phosphatase (38-126) U/L Troponin I < 0.012 (0.000-0.033) ng/mL NT-Pro-B Natriuret Pep (<300) pg/mL Serum Total Protein (6.3-8.2) g/dL Albumin (3.5-5.0) g/dL Urine Color (Yellow) Urine Appearance (Clear) Urine pH (4.6-8.0) Ur Specific [place] (1.005-1.030) Urine Protein (Negative) Urine Glucose (UA) (Negative) mg/dL Urine Ketones (Negative) Urine Blood (Negative) Urine Nitrite (Negative) Urine Bilirubin (Negative) Urine Urobilinogen (0.2) mg/dL Ur Leukocyte Esterase (Negative) U Hyaline Cast (Auto) (0-2) /LPF Urine Microscopic RBC (0-5) /HPF Urine Microscopic WBC (0-5) /HPF Ur Epithelial Cells (None Seen) /HPF Urine Bacteria (None Seen) /HPF Urine Culture Reflexed (NO) Monoscreen NEGATIVE (NEGATIVE) Influenza Type A Ag (NEGATIVE) Influenza Type B Ag (NEGATIVE) RSV (PCR) (NEGATIVE) SARS-CoV-2 (PCR) (NEGATIVE) Group A Strep Antibody (NEGATIVE) 07/03/24 07/03/24 07/03/24 Range/Units 08:10 08:10 07:53 WBC 4.3 (3.98-10.04) x10^3/uL RBC 4.08 (3.93-5.22) x10^6/uL Hgb 12.0 (11.2-15.7) g/dL Hct 36.4 (34.1-44.9) % MCV 89.2 (79.4-94.8) fL MCH 29.4 (25.6-32.2) pg MCHC 33.0 (32.2-35.5) g/dL RDW 14.5 H (11.7-14.4) % Plt Count 262 (182-369) x10^3/uL MPV 9.5 (9.4-12.3) fL Gran % 69.9 (34.0-71.1) % Immature Gran % (Auto) 0.5 H (0.001-0.429) % Nucleat RBC Rel Count 0.0 (0.00-0.2) % Eos # (Auto) 0.01 L (0.04-0.36) x10^3/uL Immature Gran # (Auto) 0.02 (0.001-0.031) x10^3u/L Absolute Lymphs (auto) 0.86 L (1.18-3.74) x10^3/uL Absolute Monos (auto) 0.39 (0.24-0.86) x10^3/uL Absolute Nucleated RBC 0.00 (0.00-0.012) x10^3u/L Lymphocytes % 20.1 (19.3-51.7) % Monocytes % 9.1 (4.7-12.5) % Eosinophils % 0.2 L (0.7-5.8) % Basophils % 0.2 (0.1-1.2) % Absolute Granulocytes 2.99 (1.56-6.13) x10^3/uL Basophils # 0.01 (0.01-0.08) x10^3/uL D-Dimer (0.0-0.50) mg/L pO2/FiO2 Ratio 21.0 % VBG pH 7.44 H (7.32-7.42) VBG pCO2 at Pat Temp 45 (42-55) mm/Hg VBG pO2 at Pat Temp 40 (25-40) mm/Hg VBG HCO3 30.6 H* (22-28) meq/L VBG O2 Sat (Josh) 74.9 L (95-100) VBG Base Excess 5.6 H (-2.0-2.0) VBG Hemoglobin 12.7 VBG Carboxyhemoglobin 2.0 (0.0-6.9) % T HGB POC Potassium 3.9 (3.5-5.1) Sodium 138 (135-145) mmol/L Potassium 3.9 (3.5-5.1) mmol/L Chloride 104 (98-107) mmol/L Carbon Dioxide 27 (22-30) mmol/L Anion Gap 11.4 (5-15) MEQ/L BUN 14 (7-17) mg/dL Creatinine 0.71 (0.52-1.04) mg/dL Estimated GFR 85.9 ML/MIN Glucose 142 H (74-106) mg/dL Lactic Acid (0.4-2.0) Calcium 8.9 (8.4-10.2) mg/dL Magnesium 1.8 (1.6-2.3) mg/dL Total Bilirubin 0.50 (0.2-1.3) mg/dL AST 29 (14-36) U/L ALT 21 (0-35) U/L Alkaline Phosphatase 75 (38-126) U/L Troponin I (0.000-0.033) ng/mL NT-Pro-B Natriuret Pep 227 (<300) pg/mL Serum Total Protein 6.5 (6.3-8.2) g/dL Albumin 3.7 (3.5-5.0) g/dL Urine Color (Yellow) Urine Appearance (Clear) Urine pH (4.6-8.0) Ur Specific [place] (1.005-1.030) Urine Protein (Negative) Urine Glucose (UA) (Negative) mg/dL Urine Ketones (Negative) Urine Blood (Negative) Urine Nitrite (Negative) Urine Bilirubin (Negative) Urine Urobilinogen (0.2) mg/dL Ur Leukocyte Esterase (Negative) U Hyaline Cast (Auto) (0-2) /LPF Urine Microscopic RBC (0-5) /HPF Urine Microscopic WBC (0-5) /HPF Ur Epithelial Cells (None Seen) /HPF Urine Bacteria (None Seen) /HPF Urine Culture Reflexed (NO) Monoscreen (NEGATIVE) Influenza Type A Ag (NEGATIVE) Influenza Type B Ag (NEGATIVE) RSV (PCR) (NEGATIVE) SARS-CoV-2 (PCR) (NEGATIVE) Group A Strep Antibody (NEGATIVE) 07/03/24 Range/Units 07:52 WBC (3.98-10.04) x10^3/uL RBC (3.93-5.22) x10^6/uL Hgb (11.2-15.7) g/dL Hct (34.1-44.9) % MCV (79.4-94.8) fL MCH (25.6-32.2) pg MCHC (32.2-35.5) g/dL RDW (11.7-14.4) % Plt Count (182-369) x10^3/uL MPV (9.4-12.3) fL Gran % (34.0-71.1) % Immature Gran % (Auto) (0.001-0.429) % Nucleat RBC Rel Count (0.00-0.2) % Eos # (Auto) (0.04-0.36) x10^3/uL Immature Gran # (Auto) (0.001-0.031) x10^3u/L Absolute Lymphs (auto) (1.18-3.74) x10^3/uL Absolute Monos (auto) (0.24-0.86) x10^3/uL Absolute Nucleated RBC (0.00-0.012) x10^3u/L Lymphocytes % (19.3-51.7) % Monocytes % (4.7-12.5) % Eosinophils % (0.7-5.8) % Basophils % (0.1-1.2) % Absolute Granulocytes (1.56-6.13) x10^3/uL Basophils # (0.01-0.08) x10^3/uL D-Dimer (0.0-0.50) mg/L pO2/FiO2 Ratio % VBG pH (7.32-7.42) VBG pCO2 at Pat Temp (42-55) mm/Hg VBG pO2 at Pat Temp (25-40) mm/Hg VBG HCO3 (22-28) meq/L VBG O2 Sat (Josh) (95-100) VBG Base Excess (-2.0-2.0) VBG Hemoglobin VBG Carboxyhemoglobin (0.0-6.9) % T HGB POC Potassium (3.5-5.1) Sodium (135-145) mmol/L Potassium (3.5-5.1) mmol/L Chloride (98-107) mmol/L Carbon Dioxide (22-30) mmol/L Anion Gap (5-15) MEQ/L BUN (7-17) mg/dL Creatinine (0.52-1.04) mg/dL Estimated GFR ML/MIN Glucose (74-106) mg/dL Lactic Acid 1.9 (0.4-2.0) Calcium (8.4-10.2) mg/dL Magnesium (1.6-2.3) mg/dL Total Bilirubin (0.2-1.3) mg/dL AST (14-36) U/L ALT (0-35) U/L Alkaline Phosphatase (38-126) U/L Troponin I (0.000-0.033) ng/mL NT-Pro-B Natriuret Pep (<300) pg/mL Serum Total Protein (6.3-8.2) g/dL Albumin (3.5-5.0) g/dL Urine Color (Yellow) Urine Appearance (Clear) Urine pH (4.6-8.0) Ur Specific [place] (1.005-1.030) Urine Protein (Negative) Urine Glucose (UA) (Negative) mg/dL Urine Ketones (Negative) Urine Blood (Negative) Urine Nitrite (Negative) Urine Bilirubin (Negative) Urine Urobilinogen (0.2) mg/dL Ur Leukocyte Esterase (Negative) U Hyaline Cast (Auto) (0-2) /LPF Urine Microscopic RBC (0-5) /HPF Urine Microscopic WBC (0-5) /HPF Ur Epithelial Cells (None Seen) /HPF Urine Bacteria (None Seen) /HPF Urine Culture Reflexed (NO) Monoscreen (NEGATIVE) Influenza Type A Ag (NEGATIVE) Influenza Type B Ag (NEGATIVE) RSV (PCR) (NEGATIVE) SARS-CoV-2 (PCR) (NEGATIVE) Group A Strep Antibody (NEGATIVE) - Progress Progress: improved Counseled pt/family regarding: lab results, diagnosis, need for follow-up, rad results Medical Desision Making - Diagnostic Testing Diagnostic test were ordered, analyzed, and reviewed by me: Yes Radiological Interpretation: Discussed w/ radiologist - Departure Departure Disposition: Home Clinical Impression: UTI (urinary tract infection), COVID-19, shortness of air, Diarrhea Condition: Stable Critical Care Time: No Referrals: EDYTA FLORES [Primary Care Provider] - Follow up/PCP as directed Instructions: Shortness of Breath (Dyspnea) (DC), COVID-19 overview, Urinary tract infections in adults, Diarrhea, Adult ED Additional Instructions: Follow up with private doctor tomorrow. Prescriptions: Nitrofurantoin Macro 100 mg [Macrobid 100MG Capsule] 100 mg PO BID #14 cap
[2024-07-03] MEDS ORDERED: Sodium Chloride 0.9% 1000 ML 0 ML ONE (08:00)
[2024-07-03] MEDS ORDERED: Sodium Chloride 0.9% 1000 ML 1,000 ML ONE (08:09)
[2024-07-03] MEDS: Sodium Chloride 0.9% 1000 ML 1,000 ML IV STA (08:09)
[2024-07-03 08:13] LABS: VBG BASE EXCESS 5.6 (-2.0-2.0); VBG HCO3- 30.6 meq/L (22-28); VBG HEMOGLOBIN 12.7; VBG O2 SATURATION 74.9 (95-100); VBG POTASSIUM 3.9 (3.5-5.1); VBG pH 7.44 (7.32-7.42)
[2024-07-03 08:29] LABS: Absolute Neutrophil Ct (ANC) 2.99 x10^3/uL (1.56-6.13); BASOPHIL % 0.2 % (0.1-1.2); Basophil (Absolute #) 0.01 x10^3/uL (0.01-0.08); Eosinophil % 0.2 % (0.7-5.8); Eosinophil (Absolute #) 0.01 x10^3/uL (0.04-0.36); Hematocrit 36.4 % (34.1-44.9); IMMATURE GRAN # 0.02 x10^3u/L (0.001-0.031); IMMATURE GRAN % 0.5 % (0.001-0.429); Lymphocyte (Absolute #) 0.86 x10^3/uL (1.18-3.74); Lymphocytes % 20.1 % (19.3-51.7); Mean Cell Volume 89.2 fL (79.4-94.8); Mean Corpuscular Hemoglobin 29.4 pg (25.6-32.2); Mean Platelet Volume 9.5 fL (9.4-12.3); Monocyte (Absolute #) 0.39 x10^3/uL (0.24-0.86); Monocytes % 9.1 % (4.7-12.5); Neutrophil % 69.9 % (34.0-71.1); Platelet Count 262 x10^3/uL (182-369); Red Blood Count 4.08 x10^6/uL (3.93-5.22); Red Cell Distribution Width 14.5 % (11.7-14.4); White Blood Count 4.3 x10^3/uL (3.98-10.04)
[2024-07-03 08:51] LABS: ALBUMIN 3.7 g/dL (3.5-5.0); ANION GAP 11.4 MEQ/L (5-15); BILIRUBIN,TOTAL 0.5 mg/dL (0.2-1.3); Calcium 8.9 mg/dL (8.4-10.2); Creatinine 1 0.71 mg/dL (0.52-1.04); EST GLOMERULAR FILTRATION RATE 85.9 ML/MIN; MAGNESIUM 1.8 mg/dL (1.6-2.3); Potassium 3.9 mmol/L (3.5-5.1); Total Protein 6.5 g/dL (6.3-8.2)
--- NOTE | 2024-07-03 09:00 | XRAY ---
Indication: Dyspnea. Comparison: July 15, 2020 Portable chest now demonstrates minimal right base infiltrate versus atelectasis. Remaining heart and lungs unremarkable again with incidental tortuous descending aorta. Bony thorax intact again with mild degenerative changes.
[2024-07-03 09:14] LABS: INFLUENZA A NEGATIVE (NEGATIVE); INFLUENZA B NEGATIVE (NEGATIVE); RESPIRATORY SYNCTIAL VIRUS NEGATIVE (NEGATIVE)
[2024-07-03 09:15] LABS: SARS-CoV-2 Xpert Express POSITIVE (NEGATIVE)
[2024-07-03 09:22] LABS: Appearance Cloudy (Clear); Bacteria Many /HPF (None Seen); Bilirubin Negative (Negative); Blood Trace (Negative); Epithelial Cells Few /HPF (None Seen); Glucose, Urine Negative (Negative); Hyaline Casts NONE SEEN /LPF (0-2); Ketones Negative (Negative); Leukocyte Esterase Large (Negative); Nitrite Negative (Negative); Ph 6.5 (4.6-8.0); Protein,Urine Dip Trace (Negative); RBC 0-2 /HPF (0-5); Urobilinogen 0.2 mg/dL (0.2); WBC >100 /HPF (0-5)
[2024-07-03 09:24] LABS: ADD URINE CULTURE? YES (NO)
[2024-07-03] MEDS ORDERED: ROCEPHIN 1 GM / 100 ML NaCl 1 GM/100 ML IVPB IV ONE (11:12)
--- NOTE | 2024-07-03 11:12 | XRAY ---
Indication: Dyspnea. Elevated d-dimer. Positive Covid 19. Multiple contiguous axial images obtained through the chest using 80 cc Isovue 370 contrast and PE protocol. Comparison: July 13, 2020 Good opacification of the pulmonary arteries to include the lobar and segmental branches. Negative pulmonary embolus. Heart not enlarged. Aorta is normal in course and caliber. No pathologic mediastinal/hilar lymphadenopathy. Lungs again demonstrates minimal bibasilar fibrosis/scarring. No suspicious pulmonary mass, infiltrate, or effusion. Bony thorax intact again with mild degenerative changes throughout spine. Limited upper abdomen again demonstrates fatty liver. Impression: Continued negative pulmonary embolus. No new/acute cardiopulmonary abnormalities. Again chronic findings including bibasilar fibrosis/scarring, degenerative spondylosis, and fatty liver.
[2024-07-03] MEDS: ROCEPHIN 1 GM / 100 ML NaCl 1 GM/100 ML IVPB IV ONE (11:14)
[2024-07-03 12:33] VITALS: BP 126/87; PULSE 70; RESP 20; O2SAT 98
== END 2024-07-03 12:35 | disposition home or self-care (01) ==
LOC: ED 07:05
DX: N39.0 Urinary tract infection, site not specified (principal); U07.1 COVID-19; R06.02 Shortness of breath; R19.7 Diarrhea, unspecified; R53.83 Other fatigue; R05.1 Acute cough; R50.9 Fever, unspecified; I10 Essential (primary) hypertension; Z79.899 Other long term (current) drug therapy
CPT/HCPCS: 0241U; 36000; 36415; 71045; 71260; 80053; 81001; 82805; 83605; 83735; 83880; 84484; 85025; 85379; 86308; 87077; 87086; 87186; 87651; 93005; 93041; 96360; 96365; 99284; J0696